=== PATIENT | female | born 1985 | race American Indian/Alaskan Native ===

== ENCOUNTER 2018-10-03 09:33 | Outpatient (CLI) | payer OTHER ==
--- NOTE | 2018-10-03 14:34 | Fluoroscopy Report ---
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 Informed consent was obtained. Standard sterile prep and drape was employed. The catheter tip was subsequently placed within the uterine lumen via cervix. The small balloon on the tip of the catheter was inflated. Retrograde injection opacifies normal appearing uterine lumen. The uterine lumen demonstrates no evidence for extrinsic compression or intrinsic mass. There is prompt filling and spillage of the contrast from a normal-appearing left fallopian tubule. The right fallopian tubule is slightly abnormal. The distal right fallopian tubule appears dilated consistent mild hydrosalpinx. No convincing spillage of the contrast agent the pelvis is demonstrated on the right side suggesting a distal obstruction. The proximal right fallopian tubule is within normal limits. 14 fluoroscopic images were saved during this exam. IMPRESSION: The uterine cavity and left fallopian tubule are within normal limits. Slightly abnormal right fallopian tubule consistent with mild hydrosalpinx. No convincing spillage of contrast from the right fallopian tubule was demonstrated suggesting a distal occlusion.
== END 2018-10-03 09:34 | disposition home or self-care (01) ==
LOC: FLUORO 09:33
PROVIDERS: ATTEND Obstetrics & Gynecology
DX: N97.1 Female infertility of tubal origin (principal)
CPT/HCPCS: 58340; 74740; Q9967